=== PATIENT | male | born 1980 | race Caucasian/White ===

== ENCOUNTER 2022-09-15 07:00 | Observation (INO) | payer OTHER ==
[~2022-09-15] VITALS: Ht 170.2 cm; Wt 63.7 kg
[~2022-09-15 07:00] MED LIST: AMOX500 PO; CEPH500 PO; CLON.5 PO; CYCL10 PO; HYDACE5 PO; IBUP800; PENVK500 PO; RXHYDACE PO; RXPENVK250 PO; SULTRIDS PO
[2022-09-15 07:33] LABS: BASOPHILS ABSOLUTE AUTO 0.08 K/mm3 (0.00-0.23); BASOPHILS PERCENT AUTO 0 % (0-2); EOSINOPHILS ABSOLUTE AUTO 0.01 K/mm3 (0.00-0.68); EOSINOPHILS PERCENT AUTO 0 % (0-6); Hematocrit 47.7 % (37.0-53.0); Hemoglobin 16.3 g/dL (13.5-17.5); IMMATURE GRAN ABSOLUTE AUTO 0.14 K/mm3 (0.00-0.10); IMMATURE GRAN PERCENT AUTO 1 % (0-1); LYMPHOCYTES ABSOLUTE AUTO 2.03 K/mm3 (0.84-5.20); LYMPHOCYTES PERCENT AUTO 10 % (21-46); MONOCYTES ABSOLUTE AUTO 0.83 K/mm3 (0.16-1.47); MONOCYTES PERCENT AUTO 4 % (4-13); Mean Corpuscular HGB 30.6 pg (26.0-34.0); Mean Corpuscular HGB Conc 34.2 g/dL (31.5-36.5); Mean Corpuscular Volume 90 fL (80-100); Mean Platelet Volume 8.4 fL (9.1-12.4); NEUTROPHILS ABSOLUTE AUTO 17.52 K/mm3 (1.96-9.15); NEUTROPHILS PERCENT AUTO 85 % (41-73); Platelet Count 368 K/mm3 (150-400); RDW Coefficient Variation 12.9 % (11.7-14.2); RDW Standard Deviation 42.1 fL (35.1-46.3); Red Blood Cell Count 5.32 M/mm3 (4.30-5.90); White Blood Cell Count 20.61 K/mm3 (4.00-11.30)
[2022-09-15 07:55] LABS: Albumin, Blood 4.7 g/dL (3.4-5.0); Albumin/Globulin Ratio 1.3 (0.8-1.8); Bilirubin, Total 0.5 mg/dL (0.1-1.0); Bun/Creatinine Ratio 16.4 (12.0-20.0); Calcium, Blood 10.4 mg/dL (8.5-10.1); Creatinine, Blood 0.85 mg/dL (0.60-1.20); Globulin, Blood 3.6 g/dL (2.2-4.0); Potassium, Blood 4.1 mmol/L (3.5-5.5); Total Protein, Blood 8.3 g/dL (6.4-8.2)
[2022-09-15 15:59] LABS: Source, Urine Clean Catch
[2022-09-15 16:03] LABS: Appearance, Urine Clear (Clear); Bilirubin, Urine Neg (Neg); Blood, Urine 2+ (Neg); Color, Urine Yellow (P-Yellow); Glucose Qualitative, Urine Neg (Neg); Ketones, Urine 4+ (Neg); Leukocyte Esterase, Urine Neg (Neg); Nitrite, Urine Neg (Neg); Protein, Urine Neg (Neg); Urobilinogen, Urine NORM (Normal)
[2022-09-15 16:22] LABS: Bacteria Few /hpf; Squamous Epithelial Cells Rare /hpf (Few); White Blood Cells, Urine 0-2 /hpf (0-5)
--- NOTE | 2022-09-15 18:42 | NUR ---
SHIFT SUMMARY NEW ADMIT TO UNIT FROM ER FOR SBO. ARRIVED TO ROOM AT 1245 ALERT AND ORIENTED. ABLE TO TRANSFER SELF TO BED. REPORTED SEVERE ABD PAIN. MEDICATED WITH 1 MG DILAUDID IV. LR RUNNING, TOLERATING CLEAR LIQUID DIET. VOIDING WELL. 1 EPISODE DIARRHEA. DENIES NAUSEA AND VOMITING. EKG, UA, AND ABD XRAY COMPLETED. DR ROBERSON EXAMINED PATIENT IN ROOM, PLAN FOR SBO FOLLOW THROUGH IN AM.
--- NOTE | 2022-09-15 21:49 | NUR ---
PT BEHAVIOUR/SECURITY 2011 AROUND 2011, I ARRIVED TO PT ROOM TO FIND HIM SMOKING IN THE BATHROOM, PT REPORTS THAT HE ASKED STAFF HOURS AGO TO GO OUTSIDE TO SMOKE. I WAS UNAWARE OF THESE REQUESTS AND HAD NOT BEEN NOTIFIED BY [facility]. PER [facility] RN REPORT PT HAD SLEPT MOST OF THE AFTERNOON AND DENIED NEEDS. I NOTIFIED PT THAT WE ARE A NICOTINE FREE CAMPUS AND PER POLICY HE IS NOT ALLOWED TO SMOKE ON THE PREMSISES. I ALSO NOTIFIED HIM THAT SMOKING INSIDE THE HOSPITAL IS PROHIBITED. I OFFERED TO CALL THE DOCTOR TO GET A NICOTINE PATCH ORDERED AND HE DECLINED. PT WAS APOLOGETIC FOR SMOKING IN HIS ROOM AND WAS AGREEABLE TO WHAT WAS DISCUSSED WITHOUT FURTHER INCIDENT AT THAT TIME. 2099 AROUND 2099 PT HAD SEVERAL VISITORS ARRRIVE AFTER VISITING HOURS HAD ENDED. PT DEMANDED TO GO OUTSIDE TO SMOKE. CERTIFIED SURGICAL TECH/FIRST ASSISTANT ANSELMO AWARE OF SITUATION AND STATES THAT SHE WOULD TALK WITH PT REGARDING SMOKING POLICY. PT ROOM ALSO LOCATED IN A LOCK UNIT FOR A DIFFERENT PT. CERTIFIED SURGICAL TECH/FIRST ASSISTANT WAS TIED UP IN ANOTHER ROOM, AND STATES THAT SHE WILL BE IN TO TALK WITH HIM SHORTLY, THIS RN NOTIFIED HIM OF THAT WELL. PT BECAME HIGHLY AGITATED AND BEGAN PRESSING HIS CALL LIGHT INCESSANTLY. HE CAME OUT OF HIS ROOM, BECAME VERABLLY ABUSIVE AND STARTED YELLING/CURSING AT STAFF, THREATENING TO KICK THE UNIT DOOR DOWN. SECURITY WAS CALLED AND RESPONDED TO THE ROOM, SECURITY NOTIFIED PT THAT HE WAS FREE TO LEAVE AMA AND THAT NO WAS HOLDING HIM HERE AGANIST HIS WILL. THEY ALSO REMINDED PT OF THE SMOKE FREE CAMPUS POLICY, PT THEN THREATENED TO SMOKE IN HIS CAR. PT BEHAVIOUR ONLY CONTINUED TO ESCALATE, PT VOICE GOT LOUDER, AND HE STARTED POINTING AT STAFF AND CONTINUED CURSING. PT VISITORS ALSO BEGAN DEFENDING PT AND WERE YELLING/CURSING AT STAFF MEMBERS. IN ADDITION TO YELLING/CURSING AT STAFF MEMBERS PT ALSO BEGAN YELLING AND CURSING AT CONCERNED FAMILY MEMBERS OF OTHER PAITENTS WHO HAD STEPPED OUTSIDE THIER ROOM TO SEE WHAT WAS GOING ON. UNFORTUNATELY, SECURITY'S ATTEMPT TO DEESCULATE THE SITUATION WERE UNSUCCESSFUL. PT BEGAN REFUSING CARE, AND STATED THAT HE DIDN'T WANT TO BE HERE ANYMORE AND ASKS THIS RN TO REMOVE HIS IV. I REMOVED HIS IV REQUESTED AND OFFERED AN AMA FORM IF HE NO LONGER WANTED CARE, HE REFUSED AN AMA FORM. COLIN MCGUIRE NURSING SUPERVISOR GROWER ARRIVED TO THE PT ROOM SHORTLY AFTER SECURITY AND ATTEMPTED TO DEESCULATE SITUTATION. SHE ALLOWED PT TO GO OUTSIDE, PT DID NOT WANT TO LEAVE AMA AND REQUESTED A DIFFERENT ROOM THAT WAS NOT LOCATED IN A LOCK UNIT. PT STATES THAT HE WILL COME BACK AFTER HE GOES OUTSIDE. PT GRABBED ALL OF HIS BELONGINGS AND LEFT WITH HIS VISITORS. SUPERVISOR GROWER NOTIFIED PT THAT THERE WILL BE ANOTHER ROOM ASSIGNED THAT IS OUTSIDE THE LOCKED UNIT WHEN HE COMES BACK INSIDE.
--- NOTE | 2022-09-15 22:53 | NUR ---
PT IN ROOM/ASSINGED TO 209 PT ARRIVED BACK TO UNIT AFTER SPENDING SOME TIME OUTSIDE, HE HAS BEEN ASSINGED TO ROOM 209. NEW IV STARTED BY ANOTHER RN AND PT HAS BEEN MEDICATED FOR PAIN. PT RESTING IN BED AT THIS TIME WITHOUT DISTRESS.
--- NOTE | 2022-09-15 23:11 | NUR ---
REPORT TAKEN FROM ZOË CASTELLANOS, TO ASSUME CARE AT THIS TIME.
--- NOTE | 2022-09-16 01:42 | NUR ---
ASSESSMENT PT AOX4 INDEP IN ROOM, REPORTS HAVING SEVERAL LOOSE STOOLS NOT PASSING FLATUS. ABLE TO TOLERATE CL AT THIS TIME. THIS RN TO CLARIFY NPO STATUS FOR XRAY IN AM. PT IS CALM AND STATES HE IS READY TO GET SOME SLEEP. DENIES N/V AND PAIN AT THIS TIME. CALL LIGHT IS IN REACH, FLUIDS GOING AT 150/HR.
[2022-09-16 04:48] LABS: BASOPHILS ABSOLUTE AUTO 0.07 K/mm3 (0.00-0.23); BASOPHILS PERCENT AUTO 0 % (0-2); EOSINOPHILS PERCENT AUTO 1 % (0-6); Hematocrit 41.6 % (37.0-53.0); IMMATURE GRAN PERCENT AUTO 1 % (0-1); LYMPHOCYTES PERCENT AUTO 20 % (21-46); MONOCYTES ABSOLUTE AUTO 1.42 K/mm3 (0.16-1.47); MONOCYTES PERCENT AUTO 8 % (4-13); Mean Corpuscular HGB 30.7 pg (26.0-34.0); Mean Corpuscular HGB Conc 33.7 g/dL (31.5-36.5); Mean Corpuscular Volume 91 fL (80-100); Mean Platelet Volume 8.4 fL (9.1-12.4); NEUTROPHILS ABSOLUTE AUTO 12.29 K/mm3 (1.96-9.15); NEUTROPHILS PERCENT AUTO 70 % (41-73); Platelet Count 279 K/mm3 (150-400); RDW Coefficient Variation 13.2 % (11.7-14.2); RDW Standard Deviation 44.3 fL (35.1-46.3); Red Blood Cell Count 4.56 M/mm3 (4.30-5.90); White Blood Cell Count 17.48 K/mm3 (4.00-11.30)
[2022-09-16 05:23] LABS: Albumin, Blood 3.1 g/dL (3.4-5.0); Albumin/Globulin Ratio 1.2 (0.8-1.8); Bilirubin, Total 0.6 mg/dL (0.1-1.0); Bun/Creatinine Ratio 12.9 (12.0-20.0); Creatinine, Blood 0.7 mg/dL (0.60-1.20); Globulin, Blood 2.6 g/dL (2.2-4.0); Potassium, Blood 3.6 mmol/L (3.5-5.5)
[2022-09-16 05:25] LABS: Calcium, Blood 8.3 mg/dL (8.5-10.1); Total Protein, Blood 5.7 g/dL (6.4-8.2)
--- NOTE | 2022-09-16 11:47 | NUR ---
DISCHARGE SUMMARY: PATIENT DENIED PAIN THROUGHOUT THE SHIFT. PATIENT AMBULATING INDEPENDENTLY MULTIPLE TIMES IN THE ROOM AND HALLWAY. PATIENT DENIED NAUSEA OR VOMITING. PATIENT REPORTED A LARGE LOOSE BOWEL MOVEMENT AND PASSING GAS. ABDOMEN IS SOFT AND NON-TENDER. PATIENT TOLERATED CLEARS. WAS ADVANCED TO FULL LIQUIDS. PATIENT TOLERATED WELL (NO ABDOMINAL PAIN, NAUSEA OR VOMITING). PER DR. ROBERSON'S ORDERS, PATIENT READY FOR DISCHARGE. DISCHARGE INSTRUCTIONS AND EDUCATION PROVIDED TO THE PATIENT. ALL QUESTIONS AND CONCERNS ADDRESSED. NO HOME MEDICATIONS OR PRESCRIPTIONS ORDERED. PATIENT DISCHARGED IN WHEELCHAIR WITH TUCK POINTER HELPER. PATIENT STABLE AT TIME OF DISCHARGE.
== END 2022-09-16 11:45 | disposition home or self-care (01) ==
LOC: ER 07:00 → SURS 07:01 → ERHOLD 07:01 → SURS 12:50
PROVIDERS: Emergency Medicine; Family Medicine; ADMIT Internal Medicine
DX: K56.609 Unspecified intestinal obstruction, unspecified as to partial versus complete obstruction (principal); R73.9 Hyperglycemia, unspecified; F17.210 Nicotine dependence, cigarettes, uncomplicated
CPT/HCPCS: 36415; 74022; 74177; 74250; 80053; 81001; 82947; 83690; 85025; 93005; 93010; 96361; 96374-59; 96375; 96376; 99285-25; A9270; G0378; J1170; J2405; J7030; J7120; Q9967